=== PATIENT | female | born 1985 | race Caucasian/White ===

== ENCOUNTER 2022-06-23 12:43 | Emergency (ER) | payer OTHER, SELFPAY ==
[2022-06-23 12:49] VITALS: BP 131/80; PULSE 89; RESP 20; TEMP 36.7; O2SAT 99
--- NOTE | 2022-06-23 13:19 | ED.URI ---
HPI - URI/Sore Throat General Chief Complaint: Upper Respiratory Infection Stated Complaint: Cough, SOB, Chest Pain Time Seen by Provider: 06/23/22 13:19 Source: patient and RN notes reviewed Mode of arrival: ambulatory Limitations: no limitations History of Present Illness HPI Narrative: 37-year-old female presented for complaints of sinus congestion, drainage and cough over the last 3 weeks. She endorses of the last few days she has had more coughing and rib pain due to the coughing. cough is productive yellow/green foul sputum. She denies shortness of breath, wheezing, nausea, vomiting, diarrhea, fevers or chills. She has taken several at home negative COVID tests. Taking several otc meds for symptoms. MD elicited complaint: cough Related Data Home Medications Medication Instructions Recorded Confirmed norethindrone 1.5 mg-ethinyl 1 tablet DAILY 06/23/22 06/23/22 estradiol 30 mcg(21)/iron 75 mg(7) tablet (Junel FE 1.5/30 (28)) sertraline 100 mg tablet 100 mg DAILY 06/23/22 06/23/22 Allergies Allergy/AdvReac Type Severity Reaction Status Date / Time No Known Allergies Allergy Mild Verified 06/23/22 13:00 Review of Systems Review of Systems: ROS per HPI Exam Narrative: GENERAL: Ill-appearing, nontoxic EYES: PERRLA, conjunctivae clear ENT: Mucous membranes moist. TMs pearly price with dull light reflex bilaterally; no tragal tenderness. Oropharynx erythematous without lesions or exudate CHEST: Clear to auscultation, breath sounds equal. No wheezing, rhonchi, rales, or stridor. No respiratory distress, speaks in full sentences. HEART: Regular rate and rhythm. No murmur heard. SKIN: Warm, dry, no rash. NEURO: Alert and oriented x3. Course Course Emergency Course: Patient is aware of diagnosis, understands and agrees to treatment plan. Anticipatory guidance given. Patient agrees to follow-up as directed and is aware of reasons to seek care at the emergency department. Portions of this record may have been created with voice recognition software Level of Care: Express Care Visit Vital Signs Vital signs: Vital Signs Temperature 98.1 F 06/23/22 12:49 Pulse Rate 89 06/23/22 12:49 Respiratory Rate 20 12/15/22 12:49 Blood Pressure 131/80 12/15/22 12:49 Pulse Oximetry 99 06/23/22 12:49 Oxygen Delivery Room Air 06/23/22 12:49 Temperature 98.1 F 06/23/22 12:49 Pulse Rate 89 06/23/22 12:49 Respiratory Rate 20 06/23/22 12:49 Blood Pressure 131/80 06/23/22 12:49 Pulse Oximetry 99 06/23/22 12:49 Oxygen Delivery Room Air 06/23/22 12:49 reviewed MDM - URI/Sore Throat MDM Narrative Medical decision making narrative: Advised supportive measures and signs/symptoms to go to the ER. Pt is appropriate for outpt treatment and f/u. Differential Diagnosis Differential diagnosis: Likely upper respiratory infection, sinusitis, viral infection and bronchitis Discharge Plan Discharge Clinical Impression: Upper respiratory infection Patient Disposition: Home, Self-Care Condition: Stable Instructions: Antibiotic Form, Rhinosinusitis (ED) Additional Instructions: Take medication as directed Recommend Flonase spray and Zyrtec (or Claritin/Kayla) over the counter Cough syrup may cause drowsiness; avoid driving or take it at night time. Tylenol 1000mg every 8 hours as needed for pain Symptomatic treatment includes: rest, fluids, and increase humidity of the air at home. Follow up with your primary care provider in 1 week. Go to the ER for worsening symptoms or concerns. Prescriptions: New prednisone 50 mg tablet 50 mg PO DAILY Qty: 5 0RF doxycycline hyclate 100 mg tablet 100 mg PO BID 5 Days Qty: 10 0RF No Action norethindrone-e.estradiol-iron [ 1.5/30 (28)] 1.5 mg-30 mcg (21)/75 mg (7) tablet 1 tablet DAILY sertraline 100 mg tablet 100 mg DAILY Follow-up/Referrals: PHYSICIAN,BINDER CASER [Primary Care Provider
== END 2022-06-23 13:30 | disposition home or self-care (01) ==
PROVIDERS: Emergency Provider Nurse Practitioner Family
DX: J06.9 Acute upper respiratory infection, unspecified (principal)
CPT/HCPCS: 99213; G0463

== ENCOUNTER → 2023-04-18 14:54 | Outpatient (CLI) | payer BC, SELFPAY ==
--- NOTE | ~2023-04-18 | MM_ITS ---
EXAMINATION: MM screening linda BI w markus HISTORY: Screening mammogram TECHNIQUE: Craniocaudal and mediolateral oblique 3-D tomosynthesis images were obtained and synthetic 2-D images were generated. CAD analysis was submitted and interpreted. COMPARISON: No prior mammogram is available for comparison at this institution. BREAST PARENCHYMAL COMPOSITION: There are scattered areas of fibroglandular density. FINDINGS: There is no evidence of suspicious mass, calcification, or architectural distortion to sugg est malignancy in either breast. There has been no suspicious interval change. IMPRESSION: 1. No mammographic evidence of malignancy. 2. Recommend routine screening mammography in one year. BI-RADS Category 1: Negative Reviewed, dictated and finalized at location A.
== END ==
PROVIDERS: PCP Registered Nurse; Visit Provider Nurse Practitioner
DX: Z12.31 Encounter for screening mammogram for malignant neoplasm of breast (principal)
CPT/HCPCS: 77063; 77067

== ENCOUNTER 2023-12-11 16:53 | Emergency (ER) | payer BC, SELFPAY ==
[2023-12-11 17:00] VITALS: BP 109/61; PULSE 78; RESP 16; TEMP 36.6; O2SAT 100
[2023-12-11 17:02] VITALS: BP 109/61; PULSE 78; RESP 16; TEMP 36.6; O2SAT 100
--- NOTE | 2023-12-11 17:48 | ED.EAR ---
HPI - Ear Problem General Chief complaint: Ear Stated complaint: Earache Time Seen by Provider: 12/11/23 17:42 Source: patient and RN notes reviewed Mode of arrival: ambulatory Limitations: no limitations History of Present Illness HPI Narrative: Patient presents today complaining of 2 day history of left ear clogging, discomfort, coming, with decreased hearing. States she also has some mild environmental allergy symptoms. No scav-wae-fxsbyol treatment for either. Related Data Home Medications Medication Instructions Recorded Confirmed norethindrone 1.5 mg-ethinyl 1 tablet DAILY 06/23/22 12/11/23 estradiol 30 mcg(21)/iron 75 mg(7) tablet (Junel FE 1.5/30 (28)) sertraline 100 mg tablet 100 mg DAILY 06/23/22 12/11/23 ergocalciferol (vitamin D2) 1,250 1,250 mcg DIRECTED 12/11/23 12/11/23 mcg (50,000 unit) capsule spironolactone 100 mg tablet 100 mg DIRECTED 12/11/23 12/11/23 Allergies Allergy/AdvReac Type Severity Reaction Status Date / Time No Known Allergies Allergy Mild Verified 06/23/22 13:00 Review of Systems Review of Systems: CONSTITUTIONAL: Denies body aches, fever, chills, or sweats. EYES: Denies visual changes, redness, or discharge. ENT: Denies rhinorrhea, congestion, sore throat. + left ear discomfort, clogging, decreased hearing CARDIOVASCULAR: Denies chest pain, palpitations, or edema. RESPIRATORY: Denies cough or dyspnea. GASTROINTESTINAL: Denies abdominal pain, nausea, vomiting, or diarrhea. GENITOURINARY: Denies dysuria or hematuria. SKIN: Denies rash, itching, or wounds. MUSCULOSKELETAL: Denies back pain, joint pain, or myalgia. NEUROLOGIC: Denies headache, numbness, tingling, or weakness. PSYCH: Denies depression or anxiety. PMFSH Comments At time of signature, I have reviewed and agree with nursing past medical, surgical, social and family history unless otherwise noted. Please see nursing chart for further information. There is no relevant family history pertinent to the presenting complaint Exam Narrative: GENERAL: Well-appearing, well-nourished, and in no acute distress. HEAD: Normocephalic, atraumatic. EYES: EOMI. No redness or drainage. Conjunctivae normal. ENT: Mucous membranes pink and moist. Nares clear. No rhinorrhea. Right TM normal. Left TM with middle ear effusion with clear fluid. No evidence of infection. NECK: Normal AROM. CHEST: No respiratory distress. EXTREMITIES: Normal range of motion. No edema. SKIN: Warm, dry, no rash. Capillary refill normal. Normal skin turgor. NEURO: No focal deficits. Alert and oriented x3. Gait steady. PSYCH: Normal affect. No signs of depression or anxiety. Course Course Level of Care: Express Care Visit Vital Signs Vital signs: Vital Signs Temperature 97.8 F 12/11/23 17:00 Pulse Rate 78 12/11/23 17:00 Respiratory Rate 16 12/11/23 17:00 Blood Pressure 109/61 12/11/23 17:00 Pulse Oximetry 100 12/11/23 17:00 Oxygen Delivery Room Air 12/11/23 17:00 Temperature 97.8 F 12/11/23 17:02 Pulse Rate 78 12/11/23 17:02 Respiratory Rate 16 12/11/23 17:02 Blood Pressure 109/61 12/11/23 17:02 Pulse Oximetry 100 12/11/23 17:02 Oxygen Delivery Room Air 12/11/23 17:02 Reviewed Medical Decision Making MDM Narrative Medical decision making narrative: Patient has been diagnosed with left serous otitis media. Recommend Sudafed and Flonase help relieve her symptoms. Anticipatory guidance given. Differential Diagnosis Differential Diagnosis: Otitis media, otitis externa, ruptured TM, serous otitis, cerumen impaction, URI, seasonal allergies Vital Signs Vital Signs: Vital Signs Temperature 97.8 F 12/11/23 17:00 Pulse Rate 78 12/11/23 17:00 Respiratory Rate 16 12/11/23 17:00 Blood Pressure 109/61 12/11/23 17:00 Pulse Oximetry 100 12/11/23 17:00 Oxygen Delivery Room Air 12/11/23 17:00 Temperature 97.8 F 12/11/23 17:02 Pulse Rate 78 06/0
== END 2023-12-11 17:54 | disposition home or self-care (01) ==
PROVIDERS: Emergency Provider Nurse Practitioner; PCP Registered Nurse
DX: H65.02 Acute serous otitis media, left ear (principal)
CPT/HCPCS: 99211; G0463

== ENCOUNTER 2025-01-06 09:36 | Emergency (ER) | payer OTHER, SELFPAY ==
--- NOTE | ~2025-01-06 | XR_ITS ---
XR shoulder RT min 2V Ordering provider: Vince Beltre MD History: . impingement, pain x 2 months, constant ache . Comparison: None. FINDINGS: BONES: No acute fracture or dislocation. JOINT SPACES: The acromioclavicular joint is normal. The glenohumeral joint is normal. SOFT TISSUES: Normal. IMPRESSION: No acute osseous abnormality right shoulder. Reviewed, dictated and finalized at location A.
[2025-01-06 10:45] VITALS: BP 122/75; PULSE 65; RESP 18; TEMP 36.7; O2SAT 100
--- NOTE | 2025-01-06 12:19 | ED.UPPEXIN ---
HPI - Extremity Injury (Upper) General Chief Complaint: Extremity Injury, Upper Stated Complaint: right shoulder pain Time Seen by Provider: 01/06/25 11:59 History of Present Illness HPI narrative: 39-year-old female presenting to the emergency department for right shoulder pain for last several weeks. She has an upcoming appointment with orthopedic surgeon Dr. Trejo for initial encounter in evaluation of this. She states that certain positions make the pain worse especially touching the small of her back and raising overhead and above 90?. She starts getting shooting pains in her right scapular region and shoulder and specially into the anterior lateral AC area. History of rotator cuff injury prior without repair. No history of any recent trauma or injury. She has been taking hbog-kwv-zluwosv pain medications without significant relief. Wakes up the middle of night. No chest pain shortness a breath, nausea, vomiting, other systemic symptoms at this time. Related Data Home Medications ?Medication ?Instructions ?Recorded ?Confirmed ?Last Taken ?Type norethindrone 1.5 mg-ethinyl 1 tablet DAILY 06/23/22 12/11/23 Unknown History estradiol 30 mcg(21)/iron 75 mg(7) tablet (Junel FE 1.5/30 (28)) sertraline 100 mg tablet 100 mg DAILY 06/23/22 12/11/23 Unknown History ergocalciferol (vitamin D2) 1,250 1,250 mcg DIRECTED 12/11/23 12/11/23 Unknown History mcg (50,000 unit) capsule spironolactone 100 mg tablet 100 mg DIRECTED 12/11/23 12/11/23 Unknown History Allergies Allergy/AdvReac Type Severity Reaction Status Date / Time No Known Allergies Allergy Mild Verified 06/23/22 13:00 Review of Systems Review of Systems: As reviewed above in HPI Exam Narrative: GENERAL: [Well-appearing, well-nourished, and in no acute distress.] HEAD: [Normocephalic, atraumatic.] EYES: [PERRLA and EOMI.] ENT: Nares clear, no rhinorrhea or epistaxis. Mucous membranes moist. NECK: Supple. CHEST: [Clear to auscultation. No respiratory distress.] HEART: [Regular rate and rhythm]. No murmur heard. [Normal peripheral pulses.] ABDOMEN: [Soft, nondistended], [nontender], [No rigidity or guarding] EXTREMITIES: Restricted range of motion above 90? in the right shoulder secondary to pain but passive range of motion is full but does elicit pain. Anterior lateral AC joint tenderness on the right side without any overlying skin changes. Positive cross-body test, positive Neer's and Romero test. 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 SKIN: Warm, dry, no rash. NEURO: [No focal deficits]. Alert and oriented [x3.] PSYCH: [Normal mood and affect.] Course Vital Signs Vital signs: Vital Signs Temperature 36.7 C 01/06/25 10:45 Pulse Rate 65 01/06/25 10:45 Respiratory Rate 18 01/06/25 10:45 Blood Pressure 122/75 01/06/25 10:45 Pulse Oximetry 100 01/06/25 10:45 Temperature 36.7 C 01/06/25 10:45 Pulse Rate 65 01/06/25 10:45 Respiratory Rate 18 01/06/25 10:45 Blood Pressure 122/75 01/06/25 10:45 Pulse Oximetry 100 01/06/25 10:45 Oxygen Delivery Room Air 01/06/25 11:41 MDM - Extremity Injury (Upper) MDM Narrative Medical decision making narrative: 39-year-old female presenting to the emergency department for right shoulder pain for last several weeks. She has an upcoming appointment with orthopedic surgeon Dr. Trejo for initial encounter in evaluation of this. She states that certain positions make the pain worse especially touching the small of her back and raising overhead and above 90?. She starts getting shooting pains in her right scapular region and shoulder and specially into the anterior lateral AC area. History of rotator cuff injury prior without repair. No history of any recent trauma or injury. She has been taking spoh-ltq-aijeptn pain medications without significant relief. Wakes up the middle of night. No chest pain shortness a breath, nausea, vomiting, other systemic symptoms at this time. Patient's examination shows classical signs symptoms of potential impingement or rotator cuff pathology including positive cross-body testing and Neer's and Romero testing showing increased pain in the anterior lateral AC joint. She has restricted range of motion both passively and actively above 90? secondary to pain. No overt signs of trauma or any swelling. X-rays were obtained of the right shoulder she was given intramuscular Toradol and p.o. [place] for analgesia. She will have to follow up with Orthopedic surgery for further evaluations recommendations and we discussed potential treatment options including physical therapy versus injections versus less likely surgical interventions. She has an appointment scheduled and will be safely discharged after imaging. X-rays revealed no acute osseous abnormalities. Given patient's symptomatology she will require orthopedics follow-up which she is currently scheduled for an several days. Will provider anti-inflammatory measures including oral Toradol and topical diclofenac and lidocaine patches. Given a sling for comfort and return precautions described. Medical Records Attestation: I reviewed the patient's medical records. Lab Data Attestation: I reviewed the patient's lab results. Imaging Data Attestation: I personally reviewed and interpreted this imaging study as follows: My impression: Impressions Shoulder X-Ray 01/06/25 13:18 IMPRESSION: No acute osseous abnormality right shoulder. Discharge Plan Discharge Clinical Impression: Bursitis of shoulder, right, Impingement syndrome, shoulder Patient Disposition: Home Condition: Stable Instructions: Antibiotic Form, Shoulder Impingement Syndrome (ED), Rotator Cuff Injury Exercises (DC) Additional Instructions: Your x-rays do not show anything abnormal at the bony structures but her symptoms very classical for potential bursitis or shoulder impingement syndrome. Treatment regimen includes anti-inflammatory measures, physical therapy and referral to Orthopedics for potential injections or other options. Maintain your orthopedics appointment with Dr. Trejo and we can provide you a different orthopedist if they can see you even quicker. Shoulder sling for comfort. Return with any emergent concerns. Patient Language: Indonesian Prescriptions: New ketorolac 10 mg tablet 10 mg PO Q8H PRN (Reason: pain) 5 Days Qty: 20 0RF Rx Instructions: maximum total duration of 5 days from all oral, intranasal, or parenteral formulations lidocaine 5 % adhesive patch,medicated 1 patch topical DAILY Qty: 15 0RF Rx Instructions: leave on most painful area for up to 12 hrs diclofenac sodium [Arthritis Pain (diclofenac)] 1 % gel 2 g topical QID PRN (Reason: pain) Qty: 50 0RF Rx Instructions: apply to single elbow, wrist or hand; for hand includes palm/fingers/back of hand No Action spironolactone 100 mg tablet 100 mg DIRECTED ergocalciferol (vitamin D2) 1,250 mcg (50,000 unit) capsule 1,250 mcg DIRECTED norethindrone-e.estradiol-iron [Junel FE 1.5/30 (28)] 1.5 mg-30 mcg (21)/75 mg (7) tablet 1 tablet DAILY sertraline 100 mg tablet 100 mg DAILY Follow-up/Referrals: Ryan Lance MD [Physician] - 3 Days (Shoulder pain) Nasreen,BARRY Easton [Primary Care Provider] - Jimmy Wood MD [Physician] - 3 Days (Shoulder pain) Time of Disposition: 14:00
--- OUTSIDE RECORDS SUMMARY | 2025-01-06 12:28 | XMS_ITS | Clinical Summary ---
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
--- OUTSIDE RECORDS SUMMARY | 2025-01-06 12:28 | XMS_ITS | Clinical Summary ---
Author Organization [facility] Address [address] [place] [address] Care Team Providers Care Entry Level Recruiter Name Role Phone Anders Longoria DO Primary Care Provider [phone] Source Comments [facility],non-owned Affiliates and Associated Physician Practices is amultiple site organization consisting of ambulatory clinics and hospital sitesin [place], [place], [place] and [place]. This disclosure is being madepursuant to the Care Everywhere program and may not contain all information available regarding this patient. Last updated 18.[facility] Allergies No known active allergies Medications * Be aware that medications may not be up to date on this document. Alwaysverify current medications with the patient. Norethin Sánchez-Eth Estrad-FE (MICROGESTIN FE 07/29 PO) Active Family History Medical History Relation Name Comments Asthma Mother Autoimmune Disease Neg Hx Bipolar Disorder Neg Hx Cancer - Breast Neg Hx Cancer - Colon Neg Hx Cancer - Other Neg Hx Cancer - Ovarian Neg Hx Cancer - Pancreatic Neg Hx Cancer - Prostate Neg Hx Depression Neg Hx Eczema Neg Hx Hypertension Neg Hx Migraine Neg Hx Osteoporosis Neg Hx Seizures Neg Hx Sudd. 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 Gender Identity Not on file Sexual Orientation Not on file Last Filed Vital Signs Vital Sign Reading Time Taken Comments Blood Pressure 118/74 01/20/2017 5:20 PM CDT Pulse 66 01/20/2017 5:20 PM CDT Temperature 36.9 C (98.4 F) 01/20/2017 5:20 PM CDT Respiratory Rate 16 01/20/2017 5:20 PM CDT Oxygen Saturation 99% 01/20/2017 5:20 PM CDT Inhaled Oxygen Concentration - - Weight 81.2 kg (179 lb) 01/20/2017 5:20 PM CDT Height 167.6 cm (5' 6) 01/20/2017 5:20 PM CDT Body Mass Index 28.89 01/20/2017 5:20 PM CDT Plan of Treatment Health Maintenance Due Date Last Done Comments LIPID TESTING 1983 MAMMOGRAM 1983 HIV SCREENING 1998 HEPATITIS C SCREENING 02/14/2001 DTAP/TDAP/TD VACCINES (1 - Tdap) 2002 HEPATITIS B VACCINE (1 of 3 - 19+ 3-dose series) 2002 COVID-19 VACCINE (1 - 2023-2 5 season) 2024 DEPRESSION SCREENING 07/10/2024 INFLUENZA VACCINE (Season Ended) 2025 ZOSTER VACCINE (1 of 2) 2033 HIB VACCINE Aged Out No longer eligi ble based on patient's age to complete this topic HPV VACCINE Aged Out No longer eligi ble based on patient's age to complete this topic MENINGOCOCCAL (Group B) VACC INE SHARED DECISION-MAKING Aged Out No longer eligibl e based on patient's age to complete this topic MENINGOCOCCAL GROUPS A/C/Y/W VACCINE Aged Out No longer eligible b ased on patient's age to complete this topic PNEUMOCOCCAL VACCINE Aged Out No long er eligible based on patient's age to complete this topic Care Teams Entry Level Recruiter Relationship Specialty Start Date End Date Anders Longoria DO PCP - General Internal Medicine 01/20/17
--- OUTSIDE RECORDS SUMMARY | 2025-01-06 12:28 | XMS_ITS | Clinical Summary ---
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 Gender Identity Not on file Sexual Orientation Not on file Plan of Treatment Health Maintenance Due Date Last Done Comments Hepatitis C Virus (HCV) Screening 1983 TdaP Immunization 1983 Hepatitis B Immunization (1 of 3 - 19+ 3-dose series) 2002 SARS-COV-2 Immunization ( season) 2024 12/15/2020 Influenza Immunization (Seas on Ended) 2025 04/21/2021, 04/09/2020 Respiratory Syncytial Virus (RSV) Immunization (Adult) (1 - 1-dose 75+ series) 2058 Human Papillomavirus (HPV) Immunization Aged Out No longer eligible b ased on patient's age to complete this topic Meningococcal Immunization (ACWY) Aged Out No longer eligible b ased on patient's age to complete this topic Pneumococcal Immunization Combined Aged Out No longer eligible b ased on patient's age to complete this topic Rotavirus Immunization Aged Out No lo nger eligible based on patient's age to complete this topic
--- OUTSIDE RECORDS SUMMARY | 2025-01-06 12:28 | XMS_ITS | Clinical Summary ---
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 The right side of the face was red and hot. Pt had got the 2nd dose on her chest pt got a rash. Seasonal Eyes Water & Itch 08/24/2022 Medications sertraline (ZOLOFT) 100 MG tabletIndication s:Moderate episode of recurrent major depressive disorder (CMS/HCC),Anxiet y Take 1 tablet (100 mg total) by mouth daily. 90 tablet 3 11/01/2022 Active buPROPion XL (WELLBUTRIN XL) 300 MG 24 hr tabletIndication s:Moderate episode of recurrent major depressive disorder (CMS/HCC),Anxiet y,Current every day smoker Take 1 tablet (300 mg total) by mouth daily. 90 tablet 2 11/01/2022 Active LO LOESTRIN FE 1 MG-10 MCG / 10 MCG Tab Take 1 tablet by mouth daily. 11/24/2022 Active Active Problems Problem Noted Date Diagnosed Date Current every day smoker 08/24/2022 Depression Anxiety Immunizations Immunization Administration Dates Next Due Fluzone 6 Months+ Quad (0.5 mL Prefilled Syringe ) 08/24/2022 Influenza Adult (Generic) 04/21/2021,04/09/2020 PFIZER COVID-19 (5-11) mRNA, LNP-S, BIVALENT, PF, 10 MCG/0.2 ML DOSE 11/24/2020 Tdap (Adacel) 08/24/2022 Family History Medical History Relation Comments Sleep Apnea Brother 1 Sleep Apnea Brother 2 Cancer Father skin cancer Sleep Apnea Father CHF Maternal Grandmother Sleep Apnea Mother cellulitis Mother Sleep Apnea Son Relation Status Comments Brother 1 Alive Brother 2 Alive Father Alive Maternal Grandfather Maternal Grandmother Mother Alive Paternal Grandfather Paternal Grandmother Son Alive Social History Tobacco Use Types Packs/Day Years Used Date Smoking Tobacco: Former Cigarettes 0.5 20 0 10/25/2002 - 10/25/2022 Passive Smoke Exposure: Current Smokeless Tobacco: Never Tobacco Cessation:Counseling Given: No Comments:Pt quit smoking in October 2022. 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 Gender Identity Not on file Sexual Orientation Not on file Last Filed Vital Signs Vital Sign Reading Time Taken Comments Blood Pressure 112/62 01/06/2023 11:03 AM CDT Pulse 91 01/06/2023 11:03 AM CDT Temperature 36.4 C (97.6 F) 01/06/2023 11:03 AM CDT Respiratory Rate 16 01/06/2023 11:03 AM CDT Oxygen Saturation 99% 01/06/2023 11:03 AM CDT Inhaled Oxygen Concentration - - Weight 102 kg (224 lb 14.4 oz) 01/06/2023 11:03 AM CDT Height 170.2 cm (5' 7) 01/06/2023 11:03 AM CDT Body Mass Index 35.22 01/06/2023 11:03 AM CDT Plan of Treatment Health Maintenance Due Date Last Done Comments Annual Physical 1986 Hepatitis B Vaccines (1 of 3 - 19+ 3-dose series) 2002 Cervical Cancer Screening Pap with HPV Testing (Age 30 to 64) Every 5 Years 2013 COVID-19 Vaccine ( season) 2024 12/15/2020, 11/24/2020 PHQ-2 (Physician [place]) 07/10/2024 Cervical Cancer Screening Pap Smear (Age 30 to 64) Every 3 Years 09/13/2024 09/13/2021, 09/13/2021, 09/11/2020, Additional history exists Cervical Cancer Screening with HPV 09/13/2024 Mammogram Screening 04/18/2025 04/18/2023 DTaP, Tdap and Td Vaccines (2 - Td or Tdap) 08/24/2032 08/24/2022 Hepatitis C Completed 08/24/2022 HPV Vaccines Aged Out No longer eligi ble based on patient's age to complete this topic Meningococcal B Vaccine Aged Out No l onger eligible based on patient's age to complete this topic Meningococcal Vaccine Aged Out No chucky scott eligible based on patient's age to complete this topic Pneumococcal Vaccine: Pediatrics (0 to 5 Years) and At-Risk Patients (6 to 49 Years) Aged Out No longer eligible based on patient's age to complete this topic RSV Immunizations Under 20 Months Aged Out No longer eligible based on patient's age to complete this topic Procedures Procedure Name Priority Date/Time Associated Diagnosis Comments MAMMOGRAM GENERIC (SCAN ORDER) 04/18/2023 HEPATITIS C ANTIBODY W/RFX TO HCV RNA Routine 08/24/2022 9:43 AM 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 There is no laboratory evidence of HCV infection. In most cases, no further action is required. However, if recent HCV exposure is suspected, a test for HCV RNA (test code 07272) is suggested. For additional information please refer to http://education.[employer].Image Searcher/faq/XTN03s8 (This link is being provided for informational/ educational purposes only.) 08/24/2022 9:43 AM ARTIFICIAL FLOWERS STARCHER 08/25/2022 3:44 AM ARTIFICIAL FLOWERS STARCHER Narrative Resulting Agency Comment Performing Organization Information: Site ID: [id number] Name: [facility] Address: [address] [facility] [place] [address] Director: Gail Anton MD Jemma [facility] Final Resul t [facility] [employer] [facility] [id number] [place] [id number], * PAP SMEAR (09/13/2021) 09/13/2021 [facility] Scanned SCANNING Final Resu lt from Last 3 Months or Most Recently Relevant to Health Maintenance Insurance Care Teams Wood Carving Machine Operator Relationship Specialty Start Date End Date Jemma Downey APNP [address] [place] [id number] PCP - General NURSE PRACTITIONER 08/24/22
[2025-01-06] MEDS: KETOROLAC 30 MG/ML VIAL (*BKC) IM (12:40)
[2025-01-06] MEDS: HYDROcodone/acetaminophen (*CRX) 5-325 MG TABLET 1 TAB PO (12:40)
[2025-01-06 14:26] VITALS: BP 130/82; PULSE 75; RESP 18; O2SAT 100
== END 2025-01-06 14:20 | disposition home or self-care (01) ==
PROVIDERS: Emergency Provider Student in an Organized Health Care Education/Training Program; PCP Registered Nurse
DX: M75.51 Bursitis of right shoulder (principal); M75.41 Impingement syndrome of right shoulder
CPT/HCPCS: 73030; 96372; 99283; A4565; A9270; J1885